=== PATIENT | female | born 1955 | race Caucasian/White ===

== ENCOUNTER → 2018-06-27 | Outpatient (CLI) | payer MEDICARE ==
[2018-06-27 09:21] LABS: Blood Urea Nitrogen 20 mg/dL (7-17)
--- NOTE | 2018-06-27 10:18 | CT ---
EXAMINATION TYPE: CT soft tissue neck w con DATE OF EXAM: 06/27/2018 COMPARISON: None HISTORY: 63-year-old female with left neck mass/marked with a bb TECHNIQUE: Contiguous axial scanning of the soft tissues of the neck performed with IV Contrast, karishma ent injected with 100 mL of Isovue 300. Coronal/sagittal reconstructions performed. CT DLP: 284.1 mGycm Automated exposure control for dose reduction was used. FINDINGS: Visualized intracranial structures, orbits and globes, paranasal sinuses, and mastoid air cells are w ell pneumatized. Nasopharynx is clear. Mild bilateral palatine tonsillar hypertrophy. Some calcifications suggesting sequela of prior infect ion. Mild hypertrophy of the bilateral lingual tonsils as well. The epiglottis and prevertebral soft tissues are within normal limits. The glottic and subglottic structures as well as the tracheal column and visualized upper lungs appea r clear. The thyroid gland, submandibular glands, and parotid glands appear satisfactory.. There is a palpable marker along the left side of the upper neck. This corresponds to the posterior m argin of the left sternocleidomastoid. Slight asymmetry in the underlying levator scapulae muscle likely positional. Also noted deep to the palpable marker is marked hypertrophic facet arthropathy of the left-sided C3-C4 facet joint. Additio nal levels of hypertrophic facet arthropathy is present throughout. At C3-C4, this contributes to a moderate to severe neuroforaminal stenosis. Mild bilateral neuroforam inal stenosis at C5-C6. No lymphadenopathy or suspicious neck masses seen. Moderate spondylotic change throughout the cervical spine. IMPRESSION: 1. MILD BILATERAL PALATINE AND LINGUAL TONSILLAR HYPERTROPHY. 2. NO SUSPICIOUS NECK MASS OR LYMPHADENOPATHY IS SEEN. 3. PALPABLE MARKER ALONG THE LEFT LATERAL ASPECT OF THE UPPER NECK. THERE IS MARKED HYPERTROPHIC FACE T ARTHROPATHY AT THE C3-C4 FACET JOINT HERE. CORRELATE TO IF THIS CORRESPONDS TO THE PALPABLE ABNO RMALITY. A MODERATE TO SEVERE NEURAL FORAMINAL STENOSIS RESULTS FROM THIS BONY HYPEROSTOSIS.
== END | disposition home or self-care (01) ==
LOC: RADCTMAIN 08:22
PROVIDERS: ATTEND Internal Medicine
DX: J35.1 Hypertrophy of tonsils (principal)
CPT/HCPCS: 82565; 84520; 70491; 36415; Q9967

== ENCOUNTER → 2023-01-19 | Outpatient (CLI) | payer MEDICARE ==
--- NOTE | 2023-01-19 12:48 | CT ---
EXAMINATION TYPE: CT brain wo con DATE OF EXAM: 01/19/2023 COMPARISON: None available. HISTORY: F/U brain bleed, fall in october CT DLP: 1156 mGycm Automated exposure control for dose reduction was used. FINDINGS: There is no visible acute intracranial hemorrhage, mass, mass effect, midline shift, extra-axial flui d collection or hydrocephalus. The chapman-white distinction is intact without evidence of an acute major vessel infarct. The visualized paranasal sinuses and mastoid air cells are clear. IMPRESSION: NO ACUTE INTRACRANIAL PROCESS.
== END | disposition home or self-care (01) ==
LOC: RADCTMAIN 11:37
PROVIDERS: ATTEND Psychiatry & Neurology Neurology
DX: I62.00 Nontraumatic subdural hemorrhage, unspecified (principal)
CPT/HCPCS: 70450

== ENCOUNTER → 2024-06-02 | Outpatient (CLI) | payer MEDICARE ==
--- NOTE | 2024-06-02 15:28 | USB ---
Reason for Exam: Clinical finding. Risk Values: Eleanor 5 year model risk: 1.1%. NCI Lifetime model risk: 3.8%. Technique: Method: Targeted. Findings: The upper outer quadrant of the right breast, the axilla of the right breast and the retroareolar of the right breast were scanned. No solid or cystic masses are identified.. Overall Assessment: Negative, BI-RAD 1 Management: Screening Mammogram of both breasts in 3 months. A clinical breast exam by your physician is recommended on an annual basis and results should be correlated with mammographic findings. This exam should not preclude additional follow-up of suspicious palpable abnormalities. Results were given to the patient verbally at the time of exam. [facility], , 06/02/2024 3:22 PM. Electronically signed and approved by: Anton Dumont M.D. Radiologis
== END | disposition home or self-care (01) ==
LOC: RADUSWWP 14:50
PROVIDERS: ATTEND Family Medicine
DX: N63.10 Unspecified lump in the right breast, unspecified quadrant (principal)

== ENCOUNTER → 2024-09-18 | Outpatient (CLI) | payer MEDICARE ==
--- NOTE | 2024-09-19 07:53 | MM ---
Reason for Exam: Screening (asymptomatic). Last mammogram was performed 1 year(s) and 1 month(s) ago. Patient History: Menarche at age 13. Patient has no children. Postmenopausal. Maternal aunt had breast cancer, age 59. Maternal cousin had breast cancer, age 45. Maternal cousin had breast cancer, age 62. Mother had breast cancer, age 60. Risk Values: Eleanor 5 year model risk: 3.6%. NCI Lifetime model risk: 12.1%. Prior Study Comparison: 02/07/2023 Bilateral Screening Mammogram, Unknown. 08/09/2023 Bilateral [place] w/imp w/CAD R - 2, Unknown. 06/02/2024 Right US breast limited RT, [facility]. Tissue Density: The breasts are heterogeneously dense, which may obscure small masses. Findings: Analyzed By CAD. Right breast: There is no suspicious group of microcalcifications or new suspicious mass. Left breast: There is no suspicious group of microcalcifications or new suspicious mass. Overall Assessment: Negative, BI-RAD 1 Management: Screening Mammogram of both breasts in [address] [facility] will attempt to contact patient to return for supplemental views and ultrasound if indicated. Patient should continue monthly self-breast exams. A clinical breast exam by your physician is recommended on an annual basis. This exam should not preclude additional follow-up of suspicious palpable abnormalities. Note on Eleanor scores and lifetime risk: 1. A Eleanor score greater than 3% is considered moderate risk. If this is the case, consider specialist referral to assess eligibility for a risk reducing agent. 2. If overall lifetime risk for the development of breast cancer is 20% or higher, the patient may qualify for future screening with alternating mammogram and breast MRI. [facility], , 09/19/2024 7:51 AM. Electronically signed and approved by: Andrea Aponte DO
== END | disposition home or self-care (01) ==
LOC: RADMAMWWP 15:40
PROVIDERS: ATTEND Family Medicine
DX: Z12.31 Encounter for screening mammogram for malignant neoplasm of breast (principal); R92.333 Mammographic heterogeneous density, bilateral breasts; Z78.0 Asymptomatic menopausal state; Z80.3 Family history of malignant neoplasm of breast
CPT/HCPCS: 77063; 77067